=== PATIENT | female | born 1995 | race African-American/Black ===

== ENCOUNTER 2018-12-29 19:48 | Emergency (ER) | payer SELFPAY ==
[~2018-12-29] VITALS: Ht 157.5 cm; Wt 50.8 kg
[2018-12-29 20:07] VITALS: BP 123/74
== END 2018-12-29 20:35 | disposition home or self-care (01) ==
LOC: ER 20:00
DX: S01.112D Laceration without foreign body of left eyelid and periocular area, subsequent encounter (principal); X58.XXXD Exposure to other specified factors, subsequent encounter
CPT/HCPCS: Z7502